=== PATIENT | male | born 1960 | race Caucasian/White ===

== ENCOUNTER 2016-09-12 07:26 | Emergency (ER) | payer BC, OTHER ==
[~2016-09-12] VITALS: Ht 195.6 cm; Wt 141.5 kg
[~2016-09-12 07:26] MED LIST: LORT5TAB PO
[2016-09-12 07:30] VITALS: BP 158/103; PULSE 91; RESP 16; TEMP 98; O2SAT 97
[2016-09-12] MEDS ORDERED: LISI-515 PO (07:44)
[2016-09-12] MEDS ORDERED: DICL100T PO (07:44)
[2016-09-12 08:00] VITALS: O2SAT 99
[2016-09-12] MEDS ORDERED: amLODIPine BESYLATE 5 MG TAB PO ONE (08:00)
[2016-09-12] MEDS ORDERED: SODIUM CHLORIDE 0.9% FLUSH 10 ML FLUSH IVF PRN (08:00)
--- NOTE | 2016-09-12 08:16 | PD ---
HPI Chief Complaint: Hypertension Time Seen by Provider: 07:45 Travel History International Travel<30 days: No Contact w/Intl Traveler<30days: No Traveled to known affect area: No History of Present Illness HPI Patient is a 55-year-old male with history of hypertension, presents to emergency room with complaints of high blood pressure. Patient reports that 2 weeks ago, he follow-up with his primary care doctor, reports that his blood pressure at the time was around 140/87 which patient reports is normal for him. Patient reports that he takes lisinopril 10 mg twice a day, reports that he has been taking this medications for very long time. Patient reports that for the past week, he noticed his blood pressure has been elevated. Reports that he did call his primary care doctor and was told to take 20 mg of lisinopril in the morning and to not take his night dose. Patient reports that his blood pressure has still been high with a systolic blood pressures in the 160's - 170s. Patient reports that this morning, he began to feel little short of breath at rest as well as exertion. Patient reports that he is very anxious with this elevated blood pressure. Patient denies any recent travels or trips, denies any history of PE or DVT. Patient denies cough or congestion. Patient reports that he is a smoker. [facility] Past Medical History High Cholesterol: Yes Hypertension: Yes ?: Not Past Surgical History Abdominal Surgery: Yes (RIGHT INGUINAL HERNIA REPAIR ) Other Surgery: Yes (LEFT ING HERNIA REPAIR, SCOPED LEFT KNEE) Family History Family Myocardial Infarction: Yes (patient father passed at 45 years old from a massive NC) Social History Alcohol Use: No Tobacco Use: Yes (15 PACK YRS) Substance Use: No Allergies-Medications (Allergen,Severity, Reaction): Coded Allergies: Sulfa (Verified Allergy, Unknown, 09/12/16) Reported Meds & Prescriptions Reported Meds & Active Scripts Active Azithromycin 500 Mg Tab 500 Mg PO DAILY Norvasc (Amlodipine Besylate) 5 Mg Tab 5 Mg PO DAILY Reported Diclofenac Sodium ER 24 HR (Diclofenac Sodium) 100 Mg Zac 75 Mg PO BID Lisinopril 20 Mg Tab 20 Mg PO DAILY Review of Systems General / Constitutional: No: Fever Eyes: No: Visual changes HENT: No: Headaches Cardiovascular: No: Chest Pain or Discomfort, Palpitations, Irregular Rhythm, Tachycardia, Diaphoresis Respiratory: Positive: Shortness of Breath, No: Cough, Wheezing Gastrointestinal: No: Abdominal Pain Genitourinary: No: Dysuria Musculoskeletal: No: Pain Skin: No Rash Neurologic: No: Weakness, Dizziness, Syncope, Headache Psychiatric: No: Depression Endocrine: No: Polydipsia Hematologic/Lymphatic: No: Easy Bruising Physical Exam Narrative GENERAL: No acute distress, nontoxic SKIN: Focused skin assessment warm/dry. HEAD: Atraumatic. Normocephalic. EYES: Pupils equal and round. No scleral icterus. No injection or drainage. ENT: No nasal bleeding or discharge. Mucous membranes pink and moist. NECK: Trachea midline. No JVD. CARDIOVASCULAR: Regular rate and rhythm. No murmur appreciated. RESPIRATORY: No accessory muscle use. Clear to auscultation. Breath sounds equal bilaterally. GASTROINTESTINAL: Abdomen soft, non-tender, nondistended. Hepatic and splenic margins not palpable. MUSCULOSKELETAL: No obvious deformities. No clubbing. No cyanosis. No edema. NEUROLOGICAL: Awake and alert. No obvious cranial nerve deficits. Motor grossly within normal limits. Normal speech. CN 2-12 grossly intact with no neuro deficits PSYCHIATRIC: Appropriate mood and affect; insight and judgment normal. Data Data Last Documented VS Vital Signs Date Time Temp Pulse Resp B/P Pulse Ox O2 Delivery O2 Flow Rate FiO2 09/12/16 09:40 67 15 148/91 98 09/12/16 08:00 Room Air 09/12/16 07:30 98.0 Orders Electrocardiogram (09/12/16 07:59) B-Type Natriuretic Peptide (09/12/16 07:59) Complete Blood Count With Diff (09/12/16 07:59) Comprehensive Metabolic Panel (09/12/16 07:59) D-Dimer (09/12/16 07:59) Magnesium (Mg) (09/12/16 07:59) Prothrombin Time / Inr (Pt) (09/12/16 07:59) Act Partial Throm Time (Ptt) (09/12/16 07:59) Chest, Single Ap (09/12/16 07:59) Ecg Monitoring (09/12/16 07:59) Iv Access Insert/Monitor (09/12/16 07:59) Oximetry (09/12/16 07:59) Sodium Chloride 0.9% Flush (Ns Flush) (09/12/16 08:00) Amlodipine (Norvasc) (09/12/16 08:00) Labs Laboratory Tests Test 09/12/16 08:05 White Blood Count 9.0 TH/MM3 Red Blood Count 6.07 MIL/MM3 Hemoglobin 17.4 GM/DL Hematocrit 52.5 % Mean Corpuscular Volume 86.6 FL Mean Corpuscular Hemoglobin 28.6 PG Mean Corpuscular Hemoglobin 33.0 % Concent Red Cell Distribution Width 13.1 % Platelet Count 165 TH/MM3 Mean Platelet Volume 9.6 FL Neutrophils (%) (Auto) 70.3 % Lymphocytes (%) (Auto) 22.0 % Monocytes (%) (Auto) 5.5 % Eosinophils (%) (Auto) 1.2 % Basophils (%) (Auto) 1.0 % Neutrophils # (Auto) 6.3 TH/MM3 Lymphocytes # (Auto) 2.0 TH/MM3 Monocytes # (Auto) 0.5 TH/MM3 Eosinophils # (Auto) 0.1 TH/MM3 Basophils # (Auto) 0.1 TH/MM3 CBC Comment DIFF FINAL Differential Comment Prothrombin Time 10.6 SEC Prothromb Time International 1.0 RATIO Ratio Activated Partial 28.0 SEC Thromboplast Time D-Dimer Quantitative (PE/DVT) 0.34 MG/L FEU Sodium Level 138 MEQ/L Potassium Level 4.0 MEQ/L Chloride Level 103 MEQ/L Carbon Dioxide Level 24.7 MEQ/L Anion Gap 10 MEQ/L Blood Urea Nitrogen 13 MG/DL Creatinine 1.10 MG/DL Estimat Glomerular Filtration 70 ML/MIN Rate Random Glucose 131 MG/DL Calcium Level 8.8 MG/DL Magnesium Level 2.3 MG/DL Total Bilirubin 0.7 MG/DL Aspartate Amino Transf 21 U/L (AST/SGOT) Alanine Aminotransferase 29 U/L (ALT/SGPT) Alkaline Phosphatase 68 U/L B-Type Natriuretic Peptide 22 PG/ML Total Protein 7.1 GM/DL Albumin 3.7 GM/DL MDM Medical Decision Making Medical Screen Exam Complete: Yes Emergency Medical Condition: Yes Interpretation(s) EKG at 0811: NSR at 85bpm, qt/qtc: 344/387, no acute st or t wave changes Vital Signs Date Time Temp Pulse Resp B/P Pulse Ox O2 Delivery O2 Flow Rate FiO2 09/12/16 07:45 15 98 Room Air 09/12/16 07:30 98.0 91 16 158/103 97 Differential Diagnosis Accelerated hypertension, PE, pneumothorax, electrolyte abnormality, anxiety reaction, renal insufficiency Narrative Course Patient is a 55-year-old male who presents to emergency room for evaluation of elevated blood pressure. Patient reports that his blood pressure has been elevated in the past 2 weeks, denies increased life stressors, reports that he has been eating the same foods and has not been eating increased salt. Patient reports that he takes lisinopril 10 mg twice a day, reports that his doctor changed him to 20 mg daily in the morning and his blood pressure with has been elevated with a systolic blood pressure in the 170s. Patient reports that he symptoms feel lightheaded the symptoms, reports concerns as he felt short of breath this morning. Patient was told to go to the emergency room by his primary care doctor if his blood pressure could not be controlled. Patient with no chest pain at this time, reports shortness of breath. Patient was placed in a secured entrance monitor upon arrival to the emergency room. EKG ordered. Plan to obtain labs to evaluate for end organ damage. Patient with nontoxic evaluation on initial exam, will add Norvasc 5 mg. Discussed with patient to change his medications back to lisinopril 10 mg twice a day and add this Norvasc 5 mg daily. Ultimately, patient will need to follow-up with receiving clerk as he does have significant cardiac history as his father of a massive heart attack at 45 years old. Patient reports that he did have labs done showed that he does have high cholesterol, he currently is not on any patient for this at this time. Laboratory Tests Test 09/12/16 08:05 White Blood Count 9.0 TH/MM3 (4.0-11.0) Red Blood Count 6.07 MIL/MM3 (4.50-5.90) Hemoglobin 17.4 GM/DL (13.0-17.0) Hematocrit 52.5 % (39.0-51.0) Mean Corpuscular Volume 86.6 FL (80.0-100.0) Mean Corpuscular Hemoglobin 28.6 PG (27.0-34.0) Mean Corpuscular Hemoglobin 33.0 % Concent (32.0-36.0) Red Cell Distribution Width 13.1 % (11.6-17.2) Platelet Count 165 TH/MM3 (150-450) Mean Platelet Volume 9.6 FL (7.0-11.0) Neutrophils (%) (Auto) 70.3 % (16.0-70.0) Lymphocytes (%) (Auto) 22.0 % (9.0-44.0) Monocytes (%) (Auto) 5.5 % (0.0-8.0) Eosinophils (%) (Auto) 1.2 % (0.0-4.0) Basophils (%) (Auto) 1.0 % (0.0-2.0) Neutrophils # (Auto) 6.3 TH/MM3 (1.8-7.7) Lymphocytes # (Auto) 2.0 TH/MM3 (1.0-4.8) Monocytes # (Auto) 0.5 TH/MM3 (0-0.9) Eosinophils # (Auto) 0.1 TH/MM3 (0-0.4) Basophils # (Auto) 0.1 TH/MM3 (0-0.2) CBC Comment DIFF FINAL Differential Comment Prothrombin Time 10.6 SEC (9.8-11.6) Prothromb Time International 1.0 RATIO Ratio Activated Partial 28.0 SEC Thromboplast Time (24.3-30.1) D-Dimer Quantitative (PE/DVT) 0.34 MG/L FEU (0.00-0.50) Sodium Level 138 MEQ/L (136-145) Potassium Level 4.0 MEQ/L (3.5-5.1) Chloride Level 103 MEQ/L (98-107) Carbon Dioxide Level 24.7 MEQ/L (21.0-32.0) Anion Gap 10 MEQ/L (5-15) Blood Urea Nitrogen 13 MG/DL (7-18) Creatinine 1.10 MG/DL (0.60-1.30) Estimat Glomerular Filtration 70 ML/MIN (>89) Rate Random Glucose 131 MG/DL (74-106) Calcium Level 8.8 MG/DL (8.5-10.1) Magnesium Level 2.3 MG/DL (1.5-2.5) Total Bilirubin 0.7 MG/DL (0.2-1.0) Aspartate Amino Transf 21 U/L (15-37) (AST/SGOT) Alanine Aminotransferase 29 U/L (12-78) (ALT/SGPT) Alkaline Phosphatase 68 U/L (45-117) B-Type Natriuretic Peptide 22 PG/ML (0-100) Total Protein 7.1 GM/DL (6.4-8.2) Albumin 3.7 GM/DL (3.4-5.0) Last Impressions Chest X-Ray 09/12/16 0759 Signed Impressions: Service Date/Time: , September 12, 2016 08:07 - CONCLUSION: 1. Mild increased interstitial markings bilaterally consistent with mild pulmonary vascular congestion versus pneumonitis. Clinical correlation is recommended. 2. Mild cardiomegaly. 3. Degenerative changes throughout the thoracic spine. Collin Lerma MD labs are reassuring, bp now 152/95 X-ray of the chest shows pneumonitis versus vascular congestion and mild cardiomegaly, patient does admit to having a dry cough for the past few days. Plan to treat patient for pneumonia as I do not think the patient has CHF. A copy of patients report was given to him as he will need to follow-up with a receiving clerk. I reviewed all labs and studies with patient in detail. Patient will take lisinopril 10 mg twice a day as well as Norvasc in the morning. He will follow up with his primary care doctor tomorrow for blood pressure recheck , he will return to his room if he can have this done by his primary care doctor. Signs and symptoms of when to return to the emergency room was reviewed with patient in detail. Diagnosis Primary Impression: Hypertension Qualified Code: I10 - Essential hypertension Additional Impression: Pneumonia Qualified Code: J18.9 - Pneumonia due to infectious organism, unspecified laterality, unspecified part of lung Referrals: Dakota Portillo MD Patient Instructions: General Instructions Additional Instructions: Please follow-up with your primary care doctor or return to the emergency room tomorrow for blood pressure recheck Please take all antibiotics as prescribed Please take lisinopril 10 mg twice a day, taking Norvasc 5 mg in the morning Please call receiving clerk first thing in the morning for earliest follow-up Return to emergency room if symptoms worsen or progress Return to emergency room as needed Med/Other Pt SpecificInfo: Prescription(s) given Scripts Azithromycin 500 Mg Cov216 Mg PO DAILY #5 TAB Ref 0 Prov:Deborah Carr DO 09/12/16 Amlodipine (Norvasc)5 Mg Tab5 Mg PO DAILY #30 TAB Ref 0 Prov:Deborah Carr DO 09/12/16 Disposition: 01 DISCHARGE HOME Condition: Stable Deborah Carr DO Sep 12, 2016 08:16
[2016-09-12 08:18] LABS: AUTOMATED NEUTROPHIL # 6.3 TH/MM3 (1.8-7.7); BASOPHIL # 0.1 TH/MM3 (0-0.2); EOSINOPHIL # 0.1 TH/MM3 (0-0.4); EOSINOPHIL % 1.2 % (0.0-4.0); HEMATOCRIT 52.5 % (39.0-51.0); HEMO FLAGS DIFF FINAL; MEAN CELL VOLUME 86.6 FL (80.0-100.0); MEAN CORPUSCULAR HEMOGLOBIN 28.6 PG (27.0-34.0); MONO % 5.5 % (0.0-8.0); NEUT % 70.3 % (16.0-70.0); PLATELET COUNT 165 TH/MM3 (150-450); RED BLOOD COUNT 6.07 MIL/MM3 (4.50-5.90); RED CELL DISTRIBUTION WIDTH 13.1 % (11.6-17.2)
[2016-09-12 08:31] LABS: CHLORIDE 103 MEQ/L (98-107); SODIUM (NA) 138 MEQ/L (136-145)
[2016-09-12 08:34] LABS: ANION GAP 10 MEQ/L (5-15); BICARBONATE 24.7 MEQ/L (21.0-32.0); MAGNESIUM 2.3 MG/DL (1.5-2.5)
[2016-09-12 08:35] LABS: BLOOD UREA NITROGEN 13 MG/DL (7-18)
[2016-09-12 08:37] LABS: ALT (GPT) 29 U/L (12-78); AST (GOT) 21 U/L (15-37)
[2016-09-12 08:38] LABS: GLOMERULAR FILTRATION RATE 70 ML/MIN (>89)
[2016-09-12 08:39] LABS: TOTAL BILIRUBIN ADULT 0.7 MG/DL (0.2-1.0)
[2016-09-12 08:40] LABS: ALKALINE PHOSPHATASE 68 U/L (45-117)
--- NOTE | 2016-09-12 08:45 | RADHPO ---
EXAM DATE/TIME: 09/12/2016 08:07 [facility] COMPARISON: No previous studies available for comparison. INDICATIONS : Hypertension, short of breath. MEDICAL HISTORY : Hypercholesterolemia. Hypertension SURGICAL HISTORY : Inguinal hernia repair. Left knee arthroscopy ENCOUNTER: Initial ACUITY: 1 day PAIN SCORE: 0/10 LOCATION: Chest FINDINGS: The heart is mildly enlarged. Mild increased interstitial markings are noted bilaterally consistent with mild pulmonary vascular congestion versus pneumonitis. Clinical correlation is recommended. No focal alveolar consolidation is noted. Degenerative changes throughout the thoracic spine. CONCLUSION: 1. Mild increased interstitial markings bilaterally consistent with mild pulmonary vascular congestio n versus pneumonitis. Clinical correlation is recommended. 2. Mild cardiomegaly. 3. Degenerative changes throughout the thoracic spine. Collin Lerma MD on September 12, 2016 at 8:20 Board Certified Radiologist. This report was verified electronically.
[2016-09-12 08:48] LABS: PROTHROMBIN TIME - PATIENT 10.6 SEC (9.8-11.6)
[2016-09-12 09:00] VITALS: BP 152/95; PULSE 68; RESP 15
[2016-09-12] MEDS ORDERED: AMLO5 PO (09:31)
[2016-09-12] MEDS ORDERED: AZIT500T2 PO (09:31)
[2016-09-12 09:40] VITALS: BP 148/91
--- NOTE | 2016-09-13 18:44 | EKG ---
Date Performed: 09/12/2016 Time Performed: 08:11:30 PTAGE: 55 years EKG: Sinus rhythm Normal ECG NO PREVIOUS TRACING DOCTOR: Willis Ocasio Interpretating Date/Time 09/13/2016 18:40:24
== END 2016-09-12 09:46 | disposition home or self-care (01) ==
LOC: PHED 07:26
DX: I10 Essential (primary) hypertension (principal); J18.9 Pneumonia, unspecified organism; R06.02 Shortness of breath; E78.00 Pure hypercholesterolemia, unspecified; F17.210 Nicotine dependence, cigarettes, uncomplicated
CPT/HCPCS: 71010; 80053; 83735; 83880; 85025; 85379; 85610; 85730; 93005